=== PATIENT | female | born 1990 | race Hispanic/Latino ===

== ENCOUNTER 2024-06-22 19:01 | Emergency (ER) | payer SELFPAY ==
[~2024-06-22] VITALS: Ht 165.1 cm; Wt 71.2 kg
--- NOTE | 2024-06-22 19:08 | NUR ---
REPORT TO SOLO FALKP
--- NOTE | 2024-06-22 19:23 | ERN ---
ED Note History of Present Illness Stated Complaint: LACERATION TO NOSE Chief Complaint: Laceration/Avulsion Time Seen by MD: 19:05 Dictation: Patient is a 33-year-old female who was in toxic coming in today with complaints of a same level trip fall and hitting her face on her door. She states she had a nose piercing to the right side of her nose, in the alar wing it tore through her nose. No active bleeding at this time, laceration is complete through the alar wing to the tip of the nose. Patient states her tetanus shot is up to date her boyfriend is at the bedside. Allergies: Coded Allergies: No Known Drug Allergies (Verified Allergy, 09/02/12) Past Medical History Past Medical History: No Pertinent History Surgical History: Other Surgical History Other: ABD History: Not Applicable RN Note Reviewed/Agreed w/PFSH: Yes Review of System Dictation CONSTITUTIONAL: Negative except for HPI HEAD/FACE: Negative except for HPI EENT: Negative except for HPI laceration through and through to the right alar wing RESPIRATORY: Negative except for HPI GASTROINTESTINAL/ABDOMINAL: Negative except for HPI GENITOURINARY: Negative except for HPI MUSCULOSKELETAL: Negative except for HPI INTEGUMENTARY: Negative except for HPI NEUROLOGICAL/PSYCH: Negative except for HPI HEMATOLOGIC/LYMPHATIC: Negative except for HPI All Systems Negative, Except as noted above. 13 point review of systems assessed and all negative except for above. Initial Vital Sign VS Vital Signs Date Time Temp Pulse Resp B/P (MAP) Pulse Ox O2 Delivery O2 Flow Rate FiO2 06/22/24 19:02 98.4 111 20 128/86 100 Room Air 06/22/24 19:06 0 21 Physical Exam Dictation Vital Signs reviewed General Appearance: Alert, oriented x 3, no acute distress, well developed, nourished. Head and Face: non-traumatic. Eyes: PERRL, pink conjunctivas, eyelid no trauma, anterior chamber with arcus senilis. Ears: Pinnas intact and no signs of trauma or erythema ear canals clear and no discharge TM no erythema Nose: Laceration from a proximal right alar wing to the tip of the nose. Laceration is through and through. Oropharynx: Mouth normal, tongue pink, pharynx clear,no erythema, tonsils no exudates, no abscesses noted, mucous membrane moist Neck: Supple, non-tender, no thyromegaly, no masses, no JVD, no bruits Breast:Deferred Chest:No tenderness, no crepitus, no paradoxical movement, no retractions Lungs:Clear, well-ventilated, symmetric, no rales, no wheezing, no rhonchi, no stridor, good breath sounds bilaterally Heart: Regular rate, regular rhythm, no murmur, no gallops Vascular: no peripheral edema, Abdomen: Soft, positive bowel sounds, nondistended, no guarding, nontender, no rebound, no masses no hepatomegaly, no splenomegaly, no Sawant's sign, no hernias. Rectal: Deferred Genital: Deferred Neurological: Normal speech, motor function intact, sensory function intact Musculoskeletal: Neck nontender, full range of motion, back nontender, full range of motion, Extremities: nontender, full range of motion Skin: Color pink, dry, see EENT note Lymphatic: Deferred Results (Laboratory/Radiology) Laboratory/Radiology Laboratory Tests Test 06/22/24 19:25 White Blood Count 9.0 K/uL (4.8-10.8) Red Blood Count 3.99 MIL/uL (4.00-5.50) L Hemoglobin 12.4 g/dL (12.0-16.0) Hematocrit 35.8 % (36-48) L Mean Corpuscular Volume 89.7 fL (79-99) Mean Corpuscular Hemoglobin 31.1 pg (27.0-33.0) Mean Corpuscular Hemoglobin Concent 34.6 g/dL (32.0-36.0) Red Cell Distribution Width 12.5 % (11.0-15.5) Platelet Count 304 K/uL (130-400) Mean Platelet Volume 9.4 fL (7.5-10.5) Immature Granulocyte % (Auto) 0.3 % (0-1) Neutrophils (%) (Auto) 69.8 % (40.0-77.0) Lymphocytes (%) (Auto) 22.0 % (21.0-51.0) Monocytes (%) (Auto) 6.3 % (3.0-13.0) Eosinophils (%) (Auto) 1.3 % (0.0-8.0) Basophils (%) (Auto) 0.3 % (0.0-5.0) Neutrophils # (Auto) 6.3 K/uL (1.8-7.7) Lymphocytes # (Auto) 2.0 K/uL (1.0-4.8) Monocytes # (Auto) 0.6 K/uL (0.1-1.0) Eosinophils # (Auto) 0.12 K/uL (0.00-0.70) Basophils # (Auto) 0.03 K/uL (0.00-0.20) Absolute Immature Granulocyte (auto 0.03 K/uL (0-1) Nucleated Red Blood Cells 0.0 % (0.0-0.19) Prothrombin Time 10.6 SEC (9.6-11.6) Prothromb Time International Ratio 1.00 (0.85-1.15) Activated Partial Thromboplast Time 27.9 SEC (26.3-35.5) Sodium Level 146 mmol/L (136-145) H Potassium Level 3.6 mmol/L (3.5-5.1) Chloride Level 109 mmol/L (101-111) Carbon Dioxide Level 22 mmol/L (21-32) Blood Urea Nitrogen 10 mg/dL (7-18) Creatinine 0.9 mg/dL (0.5-1.0) Glomerular Filtration Rate Calc 87 mL/min (>90) Random Glucose 110 mg/dL (70-105) H Total Calcium 8.9 mg/dL (8.5-10.1) Serum Test, Qualitative NEGATIVE (NEGATIVE) Serum Alcohol 336 mg/dL (0-10) H 2034/NASAL SERIES DEMONSTRATES NO NASAL BONE FRACTURE FOREIGN BODY NOTED TO LEFT ALAR WING Labs Reviewed?: Yes ED Course ED Course Orders Procedure Category Date Status Time Saline Lock Iv CPOE 06/22/24 Transmitted 19:15 Pt And Ptt LAB 06/22/24 Complete 19:15 Drug Screen Urine LAB 06/22/24 Logged 19:15 Cefazolin Sodium PHA 06/22/24 Complete (Ancef) 19:15 Testing, LAB 06/22/24 Complete Serum Hcg 19:15 Cbc With Differential LAB 06/22/24 Complete 19:15 Basic Metabolic Panel LAB 06/22/24 Complete 19:15 ,Urine Test LAB 06/22/24 Logged 19:15 Urinalysis Profile LAB 06/22/24 Logged 19:15 *Nursing CPOE 06/22/24 Transmitted Communication: 19:15 Acetaminophen 500mg PHA 06/22/24 Complete Tab (Tylenol 500mg T 19:30 Alcohol, Blood LAB 06/22/24 Complete 19:21 Nasal Bones Comp 3+Vws RAD 06/22/24 Taken 20:06 Current Medications Medications (Trade) Dose Ordered Sig/Mahendra Route PRN Reason Start Time Stop Time Status Last Admin Dose Admin Acetaminophen (TYLenol 500MG TAB) 1,000 mg ONCE ONCE PO 06/22/24 19:30 06/22/24 19:31 DC 06/22/24 19:45 Cefazolin Sodium (Ancef) 2 gm ONCE STAT IVPB 06/22/24 19:15 06/22/24 19:19 DC 06/22/24 19:44 Vital Signs Date Time Temp Pulse Resp B/P (MAP) Pulse Ox O2 Delivery O2 Flow Rate FiO2 06/22/24 19:06 97.0 74 20 135/63 98 Room Air* 0 21 06/22/24 19:02 98.4 111 20 128/86 100 Room Air 1914/spoke to patient and her boyfriend at length regarding the injury and that we do not have the specialist here to do the repair to the nose. I advised him and I we will need to transfer her to a higher level of care with either plastics and/or ENT surgery capability They both agree. Nelson PENALOZApropellant charge zone assembler nurse was notified '[id number] with TREMAINE Truong supervisor framing mill and she is working on the transfer to higher level of care for ENT versus plastic 2041/SPOKE WITH DR. ERIN ALEXANDER AT [facility]. REVIEWED CT LABS MECHANISM OF INJURY AND INTERVENTIONS TO INCLUDE WET TO DRY DRESSING AND ANCEF 2 G. HE AGREED TO ADMIT PATIENT IN ER TO ER TRANSFER. TRANSFER CENTER WAS ON THE LINE AND WE WILL ARRANGE THE TRANSPORT. Medical Decision Making MDM MDM: DIFFERENTIAL DIAGNOSIS: COMPLEX NASAL LACERATION VERSUS FRACTURE VERSUS DRUG INTOXICATION VERSUS ALCOHOL INTOXICATION RATIONALE: TESTS CONSIDERED AND ORDERED SECONDARY TO SHARED DECISION MAKING INCLUDE: LABS, AND RADIOLOGY PREVIOUS OUTSIDE RECORDS REVIEWED: OLD ER VISITS. RISK OF COMPLICATION AND/OR MORBIDITY OR MORTALITY OF PATIENT MANAGEMENT: MODERATE MEDICATIONS-PER MEDICATION RECONCILIATION NEED FOR HOSPITALIZATION: PATIENT DOES MEET CRITERIA FOR HOSPITALIZATION. PATIENT WILL NEED TRANSFER TO HIGHER LEVEL OF CARE FOR ENT VERSUS PLASTIC SURGERY DUE TO COMPLEX NASAL LACERATION NEED FOR EMERGENCY MAJOR/MINOR SURGERY: NO THERE ARE NO SOCIAL CONCERNS WITH THIS PATIENT. ACUTE ALCOHOL INTOXICATION, ALCOHOL LEVEL 336 PRESCRIPTION DRUG MANAGEMENT PRESCRIPTIONS WILL INCLUDE SYMPTOMATIC CARE PATIENT'S PRIOR EXTERNAL MEDICAL RECORDS FROM OTHER ER VISITS WERE REVIEWED BY ME INDICATED. PRIOR TESTING AND RESULTS FROM PREVIOUS VISITS WERE REVIEWED. PRIOR TESTS WERE TAKEN INTO ACCOUNT WITH MEDICAL DECISION MAKING AND RESOURCE UTILIZATION, INDEPENDENT HISTORIAN/HISTORIANS WERE USED TO OBTAIN COMPLETE MEDICAL HISTORY. I INDEPENDENTLY INTERPRETED THE TEST THAT WERE PERFORMED, RESULTS WERE REVIEWED BY ME AND CONSIDERED FINDINGS ON RADIOLOGY IF ORDERED. MEDICAL MANAGEMENT AND EXAMINATION INTERPRETATION DISCUSSIONS WERE HAD BY ME WITH OTHER QUALIFIED HEALTHCARE PROFESSIONALS INDICATED FOR THE PATIENT'S CARE. DX & DISP Disposition: Transfer Decision to Admit Time: 19:37 Departure Impression: Primary Impression: Laceration of nose, complex Additional Impressions: Fall, Alcohol intoxication Condition: Stable Referrals: SELF,REFERRAL (PCP) Time of Disposition: 19:37 I have reviewed the case, and I agree with, Diagnosis and Plan SOLO CORMIER NP Jun 22, 2024 19:23
[2024-06-22 19:34] LABS: BASOPHILS # (AUTO) 0.03 K/uL (0.00-0.20); BASOPHILS % (AUTO) 0.3 % (0.0-5.0); EOSINOPHILS # (AUTO) 0.12 K/uL (0.00-0.70); EOSINOPHILS % (AUTO) 1.3 % (0.0-8.0); HEMATOCRIT 35.8 % (36-48); IMMATURE GRANULOCYTE ABSOLUTE 0.03 K/uL (0-1); MEAN CORPUSCULAR HEMOGLOBIN 31.1 pg (27.0-33.0); MEAN CORPUSCULAR HGB CONC 34.6 g/dL (32.0-36.0); MEAN CORPUSCULAR VOLUME 89.7 fL (79-99); MONOCYTES # (AUTO) 0.6 K/uL (0.1-1.0); MONOCYTES % (AUTO) 6.3 % (3.0-13.0); NEUTROPHILS # (AUTO) 6.3 K/uL (1.8-7.7); NEUTROPHILS % (AUTO) 69.8 % (40.0-77.0); PLATELET COUNT (AUTO) 304 K/uL (130-400); RED BLOOD CELL COUNT(AUTO) 3.99 MIL/uL (4.00-5.50); RED CELL DISTRIBUTION WIDTH 12.5 % (11.0-15.5)
[2024-06-22 19:44] LABS: PROTHROMBIN TIME 10.6 SEC (9.6-11.6)
[2024-06-22] MEDS: ceFAZolin SODIUM 2 GM VIAL IVPB STA (19:44)
[2024-06-22 19:45] LABS: PARTIAL THROMBOPLASTIN TIME 27.9 SEC (26.3-35.5)
[2024-06-22] MEDS: acetaMINOPHEN 500 MG TABLET PO ONE (19:45)
[2024-06-22 20:01] LABS: CREATININE 0.9 mg/dL (0.5-1.0); POTASSIUM 3.6 mmol/L (3.5-5.1)
--- NOTE | 2024-06-22 20:44 | NUR ---
TRANSFER PT. ACCEPTED BY JONA ALEXANDER MD FOR TRANSFER TO [facility] ER. REPORT: [phone]
--- NOTE | 2024-06-22 20:52 | HMCIMG ---
[facility] - 3 VIEWS INDICATION: Right alar wing laceration after fall COMPARISON: None FINDINGS: No acute fracture or dislocation noted. Nasal septum is midline. Orbital ewing are symmetric and intact. Visible paranasal sinuses and mastoid air cells are clear. IMPRESSION: No fracture or dislocation noted.
--- NOTE | 2024-06-22 21:16 | NUR ---
[facility] CALLED FOR TRANSPORT TO [facility] ER
[2024-06-22 21:18] VITALS: BP 105/68; PULSE 95; RESP 18; TEMP 98.6; O2SAT 98
--- NOTE | 2024-06-22 21:58 | NUR ---
REPORT CALLED TO ALE PENALOZA AT [facility] ER
== END 2024-06-22 21:57 | disposition short-term general hospital (02) ==
LOC: EDH 19:01
DX: S01.21XA Laceration without foreign body of nose, initial encounter (principal); F10.129 Alcohol abuse with intoxication, unspecified; Z79.01 Long term (current) use of anticoagulants; Y90.9 Presence of alcohol in blood, level not specified; W01.0XXA Fall on same level from slipping, tripping and stumbling without subsequent striking against object, initial encounter; Y93.89 Activity, other specified; Y92.89 Other specified places as the place of occurrence of the external cause; Y99.8 Other external cause status
CPT/HCPCS: 99285; 96374; 80048; 84703; 85025; 85610; 85730; 36415; 70160; J0690; 96365